=== PATIENT | female | born 1980 | race Caucasian/White ===

== ENCOUNTER 2016-11-21 23:19 | Inpatient (IN) | payer OTHER ==
[~2016-11-21] VITALS: Ht 170.2 cm; Wt 72.7 kg
[~2016-11-21 23:19] MED LIST: CLINDAMYCIN HC300 MG PO; EFFEXOR XR150 MG PO; FLONASE16 G1 BOTH NARES; LORATADINE10 M2 PO; MOTRIN800 MG PO; MUCINEX D ER T1 EACH PO; NORVASC2.5 MG PO; RITALIN20 MG PO; RITALIN5 MG PO; SEROQUEL100 MG PO; ULTRACET1 TABLET PO; XANAX0.5 MG PO
[2016-11-22 00:14] LABS: HEMATOCRIT 42.3 % (36.0-46.0); MCH 31.4 PG (29.0-34.0); MCHC 33.6 G/DL (30.0-36.0); MCV 93.6 FL (83-99); MEAN PLAT.VOLUME 10.5 uM^3 (9.5-12.4); PLATELET COUNT 284 K/uL (156-360); RBC DIS.WIDTH-CV 13.5 % (11.8-14.6); RBC DIS.WIDTH-SD 44.1 % (39-53); RED BLOOD COUNT 4.52 M/uL (3.80-5.20); WHITE BLOOD COUNT 8.9 K/uL (4.1-10.2)
[2016-11-22 00:47] LABS: CHLORIDE 108 mEq/L (99-109); POTASSIUM 3.9 mEq/L (3.7-5.4); SODIUM 141 mEq/L (136-147)
[2016-11-22 00:49] LABS: GLUCOSE 85 mg/dL (70-99)
[2016-11-22 00:50] LABS: ANION GAP 9 MEQ/L (2-14)
[2016-11-22 00:52] LABS: SERUM ETHYL ALCOHOL < 10 mg/dL
[2016-11-22 00:53] LABS: GFR ESTIMATE (CALCULATED) 50 mL/min/
[2016-11-22 00:54] LABS: UREA NITROGEN (BUN) 10 mg/dL (9-23)
[2016-11-22 01:05] LABS: QUANTITATIVE HCG < 4.0 MIU/ML
[2016-11-22 04:08] VITALS: BP 133/76
[2016-11-22 09:16] VITALS: BP 131/78
== END 2016-11-22 10:43 | disposition home or self-care (01) | DRG 885 ==
LOC: EME → EDBD 23:19 → EME 23:19 → 1WEST 11-22 01:54 → EDOF 11-22 01:54 → 1WEST 11-22 01:54
PROVIDERS: Emergency Medicine
DX: F33.9 Major depressive disorder, recurrent, unspecified (principal); F41.9 Anxiety disorder, unspecified; F60.9 Personality disorder, unspecified; Z59.0 Homelessness
CPT/HCPCS: 80048; 81003; 84702; 85027; 90837; 99281; 99285; G0480